=== PATIENT | female | born 1980 | race African-American/Black ===

== ENCOUNTER 2016-03-13 09:17 | Emergency (ER) | payer OTHER ==
[~2016-03-13] VITALS: Ht 149.9 cm; Wt 37.6 kg
[~2016-03-13 09:17] MED LIST: AFRIN,GENASAL D15 ML BOTH NARES; ALBUTEROL SULF8.5 GM IH; ALEVE220 MG PO; AMBIEN10 MG PO; AMOXICILLIN875 MG PO; ANTIVERT25 MG PO; BACTRIM,SEPT1 TABLET PO; CELEBREX200 MG PO; CIPRO500 MG PO; CLARITIN10 MG PO; DESYREL100 MG PO; DIAZEPAM10 MG PO; DIFLUCAN150 MG PO; EFFEXOR XR150 MG PO; EFFEXOR XR75 MG PO; ELIMITE 5% CREA60 GM TP; EXCEDRIN MIGRA1 EAC3 PO; FLAGYL500 MG PO; FLEXERIL10 MG PO; FLONASE16 G1 BOTH NARES; IBUPROFEN800 MG PO; ICY HOT PATCH1 PATCH TD; INDERAL10 MG PO; K-DUR20 MEQ PO; KEFLEX500 MG PO; KLONOPIN0.5 M1; KLONOPIN0.5 M1 PO; KLONOPIN1 MG PO; KLOR-CON M2020 MEQ PO; LEVAQUIN750 MG PO; LIBRIUM25 MG PO; LIDODERM 5% P1 PATCH TD; LORTAB 5-325 M1 EACH PO; MACROBID100 MG PO; METRONIDAZOLE500 MG PO; MINIPRESS2 MG PO; MIRALAX255 GM PO; MIRTAZAPINE45 MG PO; MOTRIN IB200 MG PO; MOTRIN600 MG PO; NAPROSYN500 MG PO; NEURONTIN100 MG PO; NOHOMEMEDS; NORCO 5/3251 TABLET PO; OMEPRAZOLE20 M2 PO; OMNICEF300 MG PO; OXYCODONE HCL5 MG PO; PERCOCET 5/31 TABLET PO; PRAZOSIN HCL2 MG PO; PREDNISONE20 MG PO; PROTONIX40 MG PO; PROZAC10 MG PO; PROZAC40 MG PO; REMERON30 M2 PO; REMERON45 MG PO; ROBITUSSIN AC,T10 ML PO; SKELAXIN400 M1 PO; SPIRIVA1 INHALATI IH; TEGRETOL200 MG PO; TESSALON PERLE100 MG PO; TORADOL10 MG PO; TYLENOL 8 HOUR650 MG PO; TYLENOL WITH C1 EACH PO; Tums,OsCal PO; VALIUM10 MG PO; VALIUM5 MG PO; VIBRAMYCIN100 MG PO; VICODIN,LORT1 TABLET PO; ZITHROMAX Z-PA250 MG PO; ZOFRAN ODT8 MG PO; ZOFRAN4 MG PO; ZOLOFT100 MG PO
[2016-03-13] MEDS ORDERED: METHADONE5 MG PO (09:55)
[2016-03-13 10:22] LABS: EOSINOPHIL (%) 0.5 % (0-5); HEMATOCRIT 38.8 % (36.0-46.0); IMMATURE GRANULOCYTE (%) 0.2 % (0.0-0.7); IMMATURE GRANULOCYTE COUNT 0.2 K/uL; LYMPHOCYTE COUNT 2.5 K/uL (1.0-2.8); MCH 29.2 PG (29.0-34.0); MCHC 33.2 G/DL (30.0-36.0); MCV 87.8 FL (83-99); MEAN PLAT.VOLUME 10.9 uM^3 (9.5-12.4); MONOCYTE (%) 8.1 % (3-12); MONOCYTE COUNT 0.7 K/uL (0-0.8); NEUTROPHIL (%) 61.7 % (45-76); NEUTROPHIL COUNT 5.2 K/uL (1.8-6.4); PLATELET COUNT 253 K/uL (156-360); RBC DIS.WIDTH-CV 14.4 % (11.8-14.6); RBC DIS.WIDTH-SD 45.6 % (39-53); RED BLOOD COUNT 4.42 M/uL (3.80-5.20); WHITE BLOOD COUNT 8.4 K/uL (4.1-10.2)
[2016-03-13 10:31] LABS: CHLORIDE 107 mEq/L (99-109); POTASSIUM 4.1 mEq/L (3.7-5.4); SODIUM 141 mEq/L (136-147)
[2016-03-13 10:33] LABS: GLUCOSE 140 mg/dL (70-99)
[2016-03-13 10:34] LABS: ANION GAP 12 MEQ/L (2-14)
[2016-03-13 10:37] LABS: GFR ESTIMATE (CALCULATED) > 59 mL/min/; UREA NITROGEN (BUN) 7 mg/dL (9-23)
[2016-03-13] MEDS ORDERED: TYLENOL WITH C1 EACH PO (11:05)
[2016-03-13 11:17] VITALS: BP 120/85
== END 2016-03-13 11:18 | disposition home or self-care (01) ==
LOC: EME 09:17
PROVIDERS: Emergency Medicine
DX: G62.9 Polyneuropathy, unspecified (principal); M79.672 Pain in left foot; M79.671 Pain in right foot; F17.200 Nicotine dependence, unspecified, uncomplicated; Z79.82 Long term (current) use of aspirin; Z79.891 Long term (current) use of opiate analgesic; Z88.1 Allergy status to other antibiotic agents; Z88.6 Allergy status to analgesic agent
CPT/HCPCS: 80048; 85025; 99281; 99284

== ENCOUNTER 2016-04-09 07:13 | Emergency (ER) | payer OTHER ==
[~2016-04-09] VITALS: Ht 149.9 cm; Wt 40.1 kg
[~2016-04-09 07:13] MED LIST changes: +METHADONE5 MG PO
[2016-04-09] MEDS ORDERED: CAPSAICIN42.5 GM TP (07:53)
[2016-04-09] MEDS ORDERED: PERCOCET 5/31 TABLET PO (07:53)
[2016-04-09 08:23] LABS: POINT-OF-CARE METER ID UU14100415; POINT-OF-CARE USER ID NUTJLF39
[2016-04-09 08:37] VITALS: BP 107/73
== END 2016-04-09 08:38 | disposition home or self-care (01) ==
LOC: EME 07:13
PROVIDERS: Nurse Practitioner Family
DX: E11.40 Type 2 diabetes mellitus with diabetic neuropathy, unspecified (principal); R20.2 Paresthesia of skin; F17.200 Nicotine dependence, unspecified, uncomplicated; Z71.6 Tobacco abuse counseling; Z79.891 Long term (current) use of opiate analgesic
CPT/HCPCS: 82948; 99281; 99283

== ENCOUNTER 2016-04-16 18:04 | Emergency (ER) | payer OTHER ==
[~2016-04-16] VITALS: Ht 149.9 cm; Wt 41.0 kg
[~2016-04-16 18:04] MED LIST changes: +CAPSAICIN42.5 GM TP
[2016-04-16] MEDS ORDERED: GABAPENTIN300 MG PO (19:35)
[2016-04-16] MEDS ORDERED: TYLENOL WITH C1 EACH PO (19:46)
[2016-04-16 19:54] VITALS: BP 109/68
== END 2016-04-16 19:57 | disposition home or self-care (01) ==
LOC: EME 18:04
DX: E11.40 Type 2 diabetes mellitus with diabetic neuropathy, unspecified (principal); Z88.1 Allergy status to other antibiotic agents; Z88.6 Allergy status to analgesic agent; F17.200 Nicotine dependence, unspecified, uncomplicated
CPT/HCPCS: 99281; 99283

== ENCOUNTER 2016-05-14 11:08 | Emergency (ER) | payer OTHER ==
[~2016-05-14] VITALS: Ht 149.9 cm; Wt 40.3 kg
[~2016-05-14 11:08] MED LIST changes: +GABAPENTIN300 MG PO
[2016-05-14] MEDS ORDERED: LORTAB 5-325 M1 EACH PO (12:22)
[2016-05-14 12:36] VITALS: BP 115/70
== END 2016-05-14 12:39 | disposition home or self-care (01) ==
LOC: EME 11:08
DX: E11.40 Type 2 diabetes mellitus with diabetic neuropathy, unspecified (principal); Z79.84 Long term (current) use of oral hypoglycemic drugs
CPT/HCPCS: 99281; 99283

== ENCOUNTER 2016-06-05 20:00 | Emergency (ER) | payer OTHER ==
[~2016-06-05] VITALS: Ht 149.9 cm; Wt 37.9 kg
[2016-06-05 20:06] VITALS: BP 115/75
[2016-06-05 20:22] LABS: POINT-OF-CARE METER ID UU13113778
[2016-06-05 20:43] LABS: HEMATOCRIT 40.2 % (36.0-46.0); MCH 28.1 PG (29.0-34.0); MCHC 32.8 G/DL (30.0-36.0); MCV 85.7 FL (83-99); MEAN PLAT.VOLUME 9.6 uM^3 (9.5-12.4); PLATELET COUNT 393 K/uL (156-360); RBC DIS.WIDTH-CV 16.4 % (11.8-14.6); RBC DIS.WIDTH-SD 51.2 % (39-53); RED BLOOD COUNT 4.69 M/uL (3.80-5.20); WHITE BLOOD COUNT 10.1 K/uL (4.1-10.2)
[2016-06-05 20:52] LABS: CHLORIDE 106 mEq/L (99-109); POTASSIUM 3.6 mEq/L (3.7-5.4); SODIUM 143 mEq/L (136-147)
[2016-06-05 20:54] LABS: GLUCOSE 131 mg/dL (70-99)
[2016-06-05 20:55] LABS: ANION GAP 12 MEQ/L (2-14)
[2016-06-05 20:56] LABS: TOTAL BILIRUBIN 0.2 mg/dL (0.0-1.0)
[2016-06-05 20:58] LABS: ALKALINE PHOSPHATASE 65 IU/L (3-129); GFR ESTIMATE (CALCULATED) > 59 mL/min/
[2016-06-05 20:59] LABS: UREA NITROGEN (BUN) 11 mg/dL (9-23)
[2016-06-05 21:01] LABS: LIPASE 35 U/L (1.0-51.0)
[2016-06-05 21:07] LABS: QUANTITATIVE HCG < 4.0 MIU/ML
[2016-06-06] MEDS ORDERED: IMODIUM A-D2 M2 PO (11:53)
[2016-06-06] MEDS ORDERED: ZOFRAN ODT4 MG PO (11:53)
[2016-06-06] MEDS ORDERED: BENTYL20 MG PO (11:53)
== END 2016-06-05 21:15 | disposition left against medical advice (07) ==
LOC: EME 20:00
DX: R11.10 Vomiting, unspecified (principal); R10.9 Unspecified abdominal pain; Z53.21 Procedure and treatment not carried out due to patient leaving prior to being seen by health care provider
CPT/HCPCS: 80053; 81003; 82948; 83690; 84702; 85027

== ENCOUNTER 2016-06-06 08:38 | Emergency (ER) | payer OTHER ==
[~2016-06-06] VITALS: Ht 149.9 cm; Wt 38.1 kg
[2016-06-06 10:01] LABS: EOSINOPHIL (%) 0.2 % (0-5); HEMATOCRIT 41.2 % (36.0-46.0); IMMATURE GRANULOCYTE (%) 0.4 % (0.0-0.7); INSTRUMENT ABS NEUTROPHIL CT 7.7 K/uL; LYMPHOCYTE COUNT 1.9 K/uL (1.0-2.8); MCH 28.2 PG (29.0-34.0); MCHC 32.8 G/DL (30.0-36.0); MCV 86.2 FL (83-99); MEAN PLAT.VOLUME 10.2 uM^3 (9.5-12.4); MONOCYTE (%) 4.5 % (3-12); MONOCYTE COUNT 0.5 K/uL (0-0.8); NEUTROPHIL COUNT 7.7 K/uL (1.8-6.4); PLATELET COUNT 386 K/uL (156-360); RBC DIS.WIDTH-CV 16.2 % (11.8-14.6); RBC DIS.WIDTH-SD 51.1 % (39-53); RED BLOOD COUNT 4.78 M/uL (3.80-5.20); WHITE BLOOD COUNT 10.2 K/uL (4.1-10.2)
[2016-06-06 10:09] LABS: CHLORIDE 103 mEq/L (99-109); POTASSIUM 3.5 mEq/L (3.7-5.4); SODIUM 140 mEq/L (136-147)
[2016-06-06 10:12] LABS: GLUCOSE 132 mg/dL (70-99)
[2016-06-06 10:13] LABS: ANION GAP 13 MEQ/L (2-14)
[2016-06-06 10:14] LABS: TOTAL BILIRUBIN 0.3 mg/dL (0.0-1.0)
[2016-06-06 10:15] LABS: ALKALINE PHOSPHATASE 69 IU/L (3-129); GFR ESTIMATE (CALCULATED) > 59 mL/min/
[2016-06-06 10:16] LABS: UREA NITROGEN (BUN) 12 mg/dL (9-23)
[2016-06-06 11:29] LABS: ADD MIUA? YES; BILIRUBIN SMALL; BLOOD NEGATIVE; COLOR AMBER ((YELLOW)); GLUCOSE (STRIP) NEGATIVE; KETONES NEGATIVE; LEUKOCYTES NEGATIVE; NITRITE NEGATIVE; PROTEIN (STRIP) 100
[2016-06-06 11:48] LABS: BACTERIA NONE SEEN /HPF; EPITHELIAL CELLS 2+ /HPF; MUCUS TRACE /LPF; RED BLOOD CELLS 0-5 /HPF (0-5); UCUL ADDED? NO; WHITE BLOOD CELLS 0-5 /HPF (0-5)
[2016-06-06] MEDS ORDERED: ZOFRAN ODT4 MG PO (11:53)
[2016-06-06] MEDS ORDERED: IMODIUM A-D2 M2 PO (11:53)
[2016-06-06] MEDS ORDERED: BENTYL20 MG PO (11:53)
[2016-06-06 12:05] VITALS: BP 113/78
== END 2016-06-06 12:23 | disposition home or self-care (01) ==
LOC: EME 08:38
PROVIDERS: Emergency Medicine
DX: R10.9 Unspecified abdominal pain (principal); R11.10 Vomiting, unspecified; R19.7 Diarrhea, unspecified; F17.200 Nicotine dependence, unspecified, uncomplicated; Z88.8 Allergy status to other drugs, medicaments and biological substances; Z88.5 Allergy status to narcotic agent; Z88.1 Allergy status to other antibiotic agents; Z88.6 Allergy status to analgesic agent; Z91.048 Other nonmedicinal substance allergy status; E11.9 Type 2 diabetes mellitus without complications; Z79.84 Long term (current) use of oral hypoglycemic drugs; Z87.442 Personal history of urinary calculi
CPT/HCPCS: 80053; 81003; 85025; 99281; 99285; J1885; J2270; J2405; J7030